=== PATIENT | female | born 1945 | race Caucasian/White ===

== ENCOUNTER 2019-01-11 16:02 | Outpatient (REF) | payer MEDICARE, SELFPAY ==
[2019-01-11 22:29] LABS: TSH (W/Ref FT4) 2.28 uIU/mL (0.358-3.74)
== END 2019-01-11 16:22 ==
LOC: NCHCN 16:02
PROVIDERS: Visit Provider Internal Medicine
DX: R22.1 Localized swelling, mass and lump, neck (principal); R53.83 Other fatigue
CPT/HCPCS: 84443

== ENCOUNTER 2019-01-25 10:46 | Outpatient (REF) | payer MEDICARE, SELFPAY ==
[2019-01-25 23:29] LABS: Abs Immature Grans 0.01 k/cumm (0.0-0.09); Absolute Basophil Count 0.04 k/cumm (0.0-0.2); Absolute Eosinophil Count 0.22 k/cumm (0.0-0.7); Absolute Lymphocyte Count 1.42 k/cumm (1.2-3.4); Absolute Monocyte Count 0.57 k/cumm (0.11-0.7); Absolute Neutrophil Count 4.68 k/cumm (1.2-6.7); Basophils % 0.6; Eosinophils % 3.2; HCT 43.7 % (36.0-46.0); HGB 14.4 g/dL (12.0-15.5); Immature Grans % 0.1; Lymphocytes % 20.5; Mean Corpuscular Hemoglobin 28.7 pg (27.0-33.0); Mean Corpuscular Volume 87.1 fL (80-95); Mean Platelet Volume 10.2 fL (8.0-11.0); Monocytes % 8.2; Neutrophils % 67.4; Platelet Count 416 x1000/uL (130-400); RBC 5.02 m/cumm (4.00-5.20); RBC Distribution Width 14.4 % (11.7-14.6); White Blood Cell Count 6.94 k/cumm (4.4-10.8)
[2019-01-26 00:07] LABS: Magnesium 1.8 mg/dL (1.8-2.4); Vitamin B12 281 pg/mL (193-986)
== END 2019-01-25 11:06 ==
LOC: NCHCN 10:46
PROVIDERS: Visit Provider Internal Medicine
DX: R53.83 Other fatigue (principal); G62.9 Polyneuropathy, unspecified; M79.606 Pain in leg, unspecified
CPT/HCPCS: 82607; 83735; 85025

== ENCOUNTER 2019-06-04 19:12 | Outpatient (REF) | payer MEDICARE, SELFPAY ==
[2019-06-04 19:29] LABS: Calculated LDL 83 mg/dL; Cholesterol 143 mg/dL (50-200); Glucose 88 mg/dL (70-100); HDL Cholesterol 48 mg/dL (40-60); Triglyceride 61 mg/dL (30-150)
[2019-06-07 12:12] LABS: Thyroperoxidase Antibody <28 U/mL (<=60)
== END 2019-06-04 19:32 ==
LOC: NCHCN 19:12
PROVIDERS: Visit Provider Internal Medicine
DX: R53.83 Other fatigue (principal); E04.2 Nontoxic multinodular goiter; Z13.6 Encounter for screening for cardiovascular disorders
CPT/HCPCS: 80061; 82947; 86376

== ENCOUNTER 2019-06-24 22:00 | Outpatient (REF) | payer MEDICARE, SELFPAY ==
[2019-06-24 21:46] LABS: Potassium 3.4 mmol/L (3.5-5.1); TSH 1.94 uIU/mL (0.36-3.74)
== END 2019-06-24 22:20 ==
LOC: NCHCN 22:00
PROVIDERS: Visit Provider Internal Medicine
DX: R94.6 Abnormal results of thyroid function studies (principal)
CPT/HCPCS: 84132; 84443

== ENCOUNTER 2019-09-20 12:10 | Outpatient (REF) | payer MEDICARE, SELFPAY ==
[2019-09-20 22:31] LABS: TSH 2.17 uIU/mL (0.36-3.74)
== END 2019-09-20 12:30 ==
LOC: NCHCN 12:10
PROVIDERS: Visit Provider Internal Medicine
DX: R94.6 Abnormal results of thyroid function studies (principal)
CPT/HCPCS: 84443

== ENCOUNTER 2020-06-20 09:07 | Outpatient (REF) | payer MEDICARE, SELFPAY ==
[2020-06-20 23:01] LABS: Anion Gap 6.6 mmol/L (3-11); BUN 17 mg/dL (7-18); CO2 29.4 mmol/L (21.0-32.0); CREATININE 1.08 mg/dL (0.55-1.02); Calcium 8.9 mg/dL (8.5-10.1); Chloride 103 mmol/L (98-107); Estimated GFR 49.46 (mL/min/1.73m2); Glucose 90 mg/dL (74-106); Potassium 4.2 mmol/L (3.5-5.1); Sodium 139 mmol/L (136-145)
== END 2020-06-20 09:27 ==
LOC: NCHCN 09:07
PROVIDERS: PCP Internal Medicine; Visit Provider Internal Medicine
DX: E87.6 Hypokalemia (principal); R94.6 Abnormal results of thyroid function studies
CPT/HCPCS: 80048; 84443

== ENCOUNTER 2020-07-03 14:16 | Outpatient (REF) | payer MEDICARE, SELFPAY ==
[2020-07-06 21:23] LABS: COVID-19 RT-PCR Result NEGATIVE (Negative)
== END 2020-07-03 14:36 ==
LOC: NCHCN 14:16
PROVIDERS: PCP Internal Medicine; Visit Provider Internal Medicine
DX: Z20.828 Contact with and (suspected) exposure to other viral communicable diseases (principal)
CPT/HCPCS: U0003

== ENCOUNTER 2021-08-22 10:40 | Outpatient (REF) | payer MEDICARE, SELFPAY ==
[2021-08-22 15:17] LABS: Anion Gap 6.5 mmol/L (3-11); BUN 18 mg/dL (7-18); CO2 31.5 mmol/L (21.0-32.0); CREATININE 0.9 mg/dL (0.55-1.02); Chloride 106 mmol/L (98-107); Glucose 86 mg/dL (74-106); Sodium 144 mmol/L (136-145); TSH (W/Ref FT4) 3.38 uIU/mL (0.36-3.74)
== END 2021-08-22 10:41 | disposition home or self-care (01) ==
LOC: NCHCN 10:40
PROVIDERS: PCP Internal Medicine; Visit Provider Internal Medicine
DX: N18.30 Chronic kidney disease, stage 3 unspecified (principal)
CPT/HCPCS: 80048; 84443

== ENCOUNTER 2021-12-19 20:46 | Outpatient (REF) | payer MEDICARE, SELFPAY ==
[2021-12-19 22:07] LABS: Bilirubin Negative (Negative); Blood Negative (Negative); Clarity Clear (Clear); Glucose Negative (Negative); Ketones Negative (Negative); Leukocyte Esterase Negative (Negative); Nitrite Negative (Negative); Urobilinogen 0.2 EU/dL (Up TO 0.2); pH 5.5 (5-8)
[2021-12-19 22:15] LABS: Abs Immature Grans 0.03 10^3/uL (0.0-0.06); Absolute Basophil Count 0.11 10^3/uL (0.0-0.2); Absolute Eosinophil Count 0.39 10^3/uL (0.0-0.7); Absolute Lymphocyte Count 2.24 10^3/uL (1.2-3.4); Absolute Monocyte Count 0.66 10^3/uL (0.1-0.8); Eosinophils % 3.5; HCT 48.7 % (36.0-46.0); HGB 15.9 g/dL (11.2-15.7); Immature Grans % 0.3; MCH 27.1 pg (27.0-33.0); MCHC 32.6 % (32.0-36.0); MCV 83 fL (80-95); MPV 9.4 fL (8.0-11.0); Monocytes % 5.9; Neutrophils % 69.3; RBC 5.87 10^6/uL (3.93-5.22); RDW 14.6 % (11.7-14.6); RDW-SD 44.5 fL; WBC 11.21 10^3/uL (4.4-10.8)
[2021-12-19 22:18] LABS: ALT 21 U/L (14-59); AST 19 U/L (15-37); Absolute Neutrophil Count 7.77 10^3/uL (1.2-6.7); Albumin 3.7 g/dL (3.4-5.0); Alkaline Phosphatase 98 U/L (46-116); BUN 20 mg/dL (7-18); Bilirubin, Total 0.6 mg/dL (0.2-1.0); C-Reactive Protein 0.89 mg/dL (0.0-0.3); CREATININE 0.9 mg/dL (0.55-1.02); Calcium 9.2 mg/dL (8.5-10.1); Chloride 102 mmol/L (98-107); Glucose 103 mg/dL (74-106); Potassium 4.1 mmol/L (3.5-5.1); Sodium 139 mmol/L (136-145)
[2021-12-19 22:23] LABS: ESR 11 mm/hr (0-30)
[2021-12-19 22:46] LABS: Diff Comment PLT Morph Reviewed; Platelet Count 883 10^3/uL (130-400)
[2021-12-21 12:32] LABS: Lyme Ab w Rflx to Lyme Confirm Negative (Negative)
[2021-12-22 15:55] LABS: Anaplasma phagocytophilum Negative (Negative); B. miyamotoi PCR Negative (Negative); Babesia divergens/MO-1 Negative (Negative); Babesia duncani Negative (Negative); Babesia microti Negative (Negative); Ehrlichia chaffeensis Negative (Negative); Ehrlichia ewingii/canis Negative (Negative); Ehrlichia muris eauclairensis Negative (Negative)
== END 2021-12-19 20:47 | disposition home or self-care (01) ==
LOC: NCHCN 20:46
PROVIDERS: PCP Internal Medicine; Visit Provider Nurse Practitioner Family
DX: R53.83 Other fatigue (principal); E87.6 Hypokalemia; R25.2 Cramp and spasm; Z78.0 Asymptomatic menopausal state
CPT/HCPCS: 80053; 85652; 87798; 81003; 83735; 85025; 86140; 86618

== ENCOUNTER 2021-12-24 13:31 | Outpatient (REF) | payer MEDICARE, SELFPAY ==
[2021-12-24 20:46] LABS: Abs Immature Grans 0.03 10^3/uL (0.0-0.06); Absolute Basophil Count 0.12 10^3/uL (0.0-0.2); Absolute Eosinophil Count 0.41 10^3/uL (0.0-0.7); Absolute Monocyte Count 0.56 10^3/uL (0.1-0.8); Eosinophils % 3.4; HCT 48.9 % (36.0-46.0); HGB 15.5 g/dL (11.2-15.7); Immature Grans % 0.2; Lymphocytes % 21.4; MCH 26.7 pg (27.0-33.0); MCHC 31.7 % (32.0-36.0); MCV 84 fL (80-95); MPV 9.3 fL (8.0-11.0); Monocytes % 4.6; Neutrophils % 69.4; RBC 5.81 10^6/uL (3.93-5.22); RDW 14.7 % (11.7-14.6); RDW-SD 44.7 fL; WBC 12.13 10^3/uL (4.4-10.8)
[2021-12-24 21:03] LABS: Absolute Neutrophil Count 8.42 10^3/uL (1.2-6.7)
[2021-12-24 21:05] LABS: Platelet Count 832 10^3/uL (130-400)
[2021-12-24 21:09] LABS: Ferritin 66 ng/mL (8-252)
== END 2021-12-24 13:32 | disposition home or self-care (01) ==
LOC: NCHCN 13:31
PROVIDERS: PCP Internal Medicine; Visit Provider Nurse Practitioner Family
DX: M25.551 Pain in right hip (principal); M16.11 Unilateral primary osteoarthritis, right hip; M48.00 Spinal stenosis, site unspecified
CPT/HCPCS: 82728; 85025

== ENCOUNTER 2022-04-12 14:38 | Outpatient (REF) | payer MEDICARE, SELFPAY ==
[2022-04-12 20:48] LABS: HCT 46.2 % (36.0-46.0); HGB 14.5 g/dL (11.2-15.7); MCHC 31.4 % (32.0-36.0); MCV 86 fL (80-95); MPV 9.3 fL (8.0-11.0); RBC 5.38 10^6/uL (3.93-5.22); RDW 19.7 % (11.7-14.6); RDW-SD 58.4 fL; WBC 12.87 10^3/uL (4.4-10.8)
[2022-04-12 21:09] LABS: Anion Gap 7.9 mmol/L (3-11); BUN 20 mg/dL (7-18); CO2 29.1 mmol/L (21.0-32.0); Chloride 100 mmol/L (98-107); Estimated GFR 58.02 (mL/min/1.73m2); Glucose 110 mg/dL (74-106); Potassium 3.9 mmol/L (3.5-5.1); Sodium 137 mmol/L (136-145)
[2022-04-12 21:24] LABS: Platelet Count 923 10^3/uL (130-400)
== END 2022-04-12 14:39 | disposition home or self-care (01) ==
LOC: NCHCN 14:38
PROVIDERS: PCP Internal Medicine; Visit Provider Internal Medicine
DX: E87.6 Hypokalemia (principal); D45 Polycythemia vera
CPT/HCPCS: 80048; 85027

== ENCOUNTER 2022-06-26 16:20 | Outpatient (REF) | payer MEDICARE, SELFPAY ==
[2022-06-26 21:03] LABS: HCT 33.9 % (36.0-46.0); HGB 10.4 g/dL (11.2-15.7); MCH 26.8 pg (27.0-33.0); MCHC 30.7 % (32.0-36.0); MCV 87 fL (80-95); MPV 9.2 fL (8.0-11.0); RBC 3.88 10^6/uL (3.93-5.22); RDW 16.5 % (11.7-14.6); RDW-SD 51.8 fL; WBC 11.66 10^3/uL (4.4-10.8)
[2022-06-26 21:24] LABS: ALT 18 U/L (14-59); AST 27 U/L (15-37); Alkaline Phosphatase 108 U/L (46-116); Anion Gap 7.8 mmol/L (3-11); BUN 21 mg/dL (7-18); Bilirubin, Total 0.3 mg/dL (0.2-1.0); CO2 29.2 mmol/L (21.0-32.0); CREATININE 0.8 mg/dL (0.55-1.02); Calcium 8.8 mg/dL (8.5-10.1); Chloride 101 mmol/L (98-107); Estimated GFR 75.84 (mL/min/1.73m2); Glucose 123 mg/dL (74-106); Potassium 3.7 mmol/L (3.5-5.1); Sodium 138 mmol/L (136-145)
[2022-06-26 21:26] LABS: Platelet Count 1120 10^3/uL (130-400)
== END 2022-06-26 16:21 | disposition home or self-care (01) ==
LOC: NCHCN 16:20
PROVIDERS: PCP Internal Medicine; Visit Provider Internal Medicine
DX: D45 Polycythemia vera (principal)
CPT/HCPCS: 80053; 85027

== ENCOUNTER 2022-07-03 15:13 | Outpatient (REF) | payer MEDICARE, SELFPAY ==
[2022-07-03 14:05] LABS: HCT 35.5 % (36.0-46.0); MCV 87 fL (80-95); MPV 9.2 fL (8.0-11.0); RBC 4.08 10^6/uL (3.93-5.22); RDW 15.9 % (11.7-14.6); RDW-SD 50.8 fL; WBC 9.24 10^3/uL (4.4-10.8)
[2022-07-03 14:11] LABS: Platelet Count 972 10^3/uL (130-400)
[2022-07-03 14:34] LABS: Anion Gap 8.5 mmol/L (3-11); BUN 20 mg/dL (7-18); CO2 28.5 mmol/L (21.0-32.0); CREATININE 0.9 mg/dL (0.55-1.02); Calcium 8.8 mg/dL (8.5-10.1); Chloride 102 mmol/L (98-107); Estimated GFR 65.84 (mL/min/1.73m2); Glucose 98 mg/dL (74-106); Potassium 3.9 mmol/L (3.5-5.1); Sodium 139 mmol/L (136-145)
== END 2022-07-03 15:14 | disposition home or self-care (01) ==
LOC: NCHCN 15:13
PROVIDERS: PCP Internal Medicine; Visit Provider Nurse Practitioner Family
DX: D45 Polycythemia vera (principal)
CPT/HCPCS: 80048; 85027

== ENCOUNTER 2022-08-23 09:53 | Outpatient (REF) | payer MEDICARE, SELFPAY ==
[2022-08-23 14:27] LABS: HCT 39.3 % (36.0-46.0); HGB 12.2 g/dL (11.2-15.7); MCV 81 fL (80-95); Platelet Count 337 10^3/uL (130-400); RBC 4.88 10^6/uL (3.93-5.22); RDW 14.8 % (11.7-14.6); RDW-SD 42.9 fL; WBC 6.79 10^3/uL (4.4-10.8)
[2022-08-23 14:44] LABS: Calculated LDL 78 mg/dL (<100); Cholesterol 161 mg/dL (<200); HDL Cholesterol 75 mg/dL (40-60); TSH (W/Ref FT4) 3.14 uIU/mL (0.36-3.74); Triglyceride 41 mg/dL (<150)
[2022-08-23 14:59] LABS: Ferritin 16 ng/mL (8-252); Folate > 20.0 ng/mL (8.6-20.0); Magnesium 1.8 mg/dL (1.8-2.4); Vitamin B12 319 pg/mL (193-986)
[2022-08-23 15:02] LABS: Vitamin D 25 Total 39.6 ng/mL (30-100)
[2022-08-28 09:11] LABS: Methylmalonic Acid 0.19 nmol/mL (<=0.40)
== END 2022-08-23 09:54 | disposition home or self-care (01) ==
LOC: LBN 09:53
PROVIDERS: PCP Internal Medicine; Visit Provider Internal Medicine Cardiovascular Disease
DX: E03.9 Hypothyroidism, unspecified (principal); E55.9 Vitamin D deficiency, unspecified; R53.82 Chronic fatigue, unspecified; D45 Polycythemia vera; R79.0 Abnormal level of blood mineral; Z79.899 Other long term (current) drug therapy
CPT/HCPCS: 80061; 80186; 82306; 82533; 85027; 82607; 82728; 82746; 83735; 84443

== ENCOUNTER 2022-08-29 12:34 | Outpatient (REF) | payer MEDICARE, SELFPAY | END 2022-08-29 12:35 | disposition home or self-care (01) | LOC: NCHCN 12:34 | PROVIDERS: PCP Internal Medicine; Visit Provider Internal Medicine | DX: R30.9 Painful micturition, unspecified (principal) | CPT/HCPCS: 87086 ==

== ENCOUNTER 2023-07-22 14:31 | Outpatient (REF) | payer MEDICARE, SELFPAY | END 2023-07-22 14:32 | disposition home or self-care (01) | LOC: NCHCN 14:31 | PROVIDERS: PCP Internal Medicine; Visit Provider Family Medicine | DX: R39.89 Other symptoms and signs involving the genitourinary system (principal) | CPT/HCPCS: 87077; 87086; 87186 ==

== ENCOUNTER 2023-08-04 14:46 | Outpatient (REF) | payer MEDICARE, SELFPAY ==
[2023-08-04 21:05] LABS: Abs Immature Grans 0.03 10^3/uL (0.0-0.06); Absolute Basophil Count 0.05 10^3/uL (0.0-0.2); Absolute Lymphocyte Count 1.63 10^3/uL (1.2-3.4); Absolute Neutrophil Count 6.11 10^3/uL (1.2-6.7); Basophils % 0.6; Eosinophils % 1.2; HCT 44.2 % (36.0-46.0); Immature Grans % 0.4; Lymphocytes % 19.1; MCH 31.4 pg (27.0-33.0); MCHC 33.9 % (32.0-36.0); MCV 93 fL (80-95); MPV 9.2 fL (8.0-11.0); Neutrophils % 71.7; Platelet Count 481 10^3/uL (130-400); RBC 4.78 10^6/uL (3.93-5.22); RDW-SD 47.2 fL; WBC 8.52 10^3/uL (4.4-10.8)
[2023-08-04 21:20] LABS: ALT 25 U/L (14-59); AST 23 U/L (15-37); Albumin 3.6 g/dL (3.4-5.0); Alkaline Phosphatase 73 U/L (46-116); Anion Gap 8.6 mmol/L (3-11); BUN 16 mg/dL (7-18); CO2 26.4 mmol/L (21.0-32.0); CREATININE 0.9 mg/dL (0.55-1.02); Chloride 102 mmol/L (98-107); Estimated GFR 65.44 (mL/min/1.73m2); Glucose 133 mg/dL (74-106); Potassium 4.1 mmol/L (3.5-5.1); Sodium 137 mmol/L (136-145); Total Protein 7.5 g/dL (6.4-8.2)
[2023-08-04 21:34] LABS: Bilirubin, Total 0.6 mg/dL (0.2-1.0)
== END 2023-08-04 14:47 | disposition home or self-care (01) ==
LOC: NCHCN 14:46
PROVIDERS: PCP Internal Medicine; Visit Provider Nurse Practitioner Family
DX: D45 Polycythemia vera (principal)
CPT/HCPCS: 80053; 85025

== ENCOUNTER 2024-01-26 17:57 | Outpatient (REF) | payer MEDICARE, SELFPAY | END 2024-01-26 17:58 | disposition home or self-care (01) | LOC: NCHCN 17:57 | PROVIDERS: PCP Internal Medicine; Visit Provider Family Medicine | DX: R30.0 Dysuria (principal); B96.20 Unspecified Escherichia coli [E. coli] as the cause of diseases classified elsewhere; B96.89 Other specified bacterial agents as the cause of diseases classified elsewhere | CPT/HCPCS: 87077; 87086; 87186 ==

== ENCOUNTER 2024-10-29 10:23 | Outpatient (REF) | payer MEDICARE, SELFPAY | END 2024-10-29 10:24 | disposition home or self-care (01) | LOC: NCHCN 10:23 | PROVIDERS: PCP Internal Medicine; Visit Provider Internal Medicine | DX: N39.0 Urinary tract infection, site not specified (principal); B96.1 Klebsiella pneumoniae [K. pneumoniae] as the cause of diseases classified elsewhere | CPT/HCPCS: 87077; 87086; 87186 ==